=== PATIENT | male | born 1980 | race Caucasian/White ===

== ENCOUNTER 2023-06-23 20:58 | Emergency (ER) | payer OTHER, SELFPAY ==
--- NOTE | ~2023-06-23 | XR_ITS ---
Portable chest x-ray Comparison: None Clinical History: Fever Findings: Lungs are clear, without focal consolidation or pleural effusion. Cardiomediastinal silho uette is unremarkable. Bones and soft tissues are unremarkable. Impression: Clear lungs. Reviewed, dictated and finalized at location [facility] Impression: Clear lungs.
[2023-06-23 21:01] VITALS: BP 139/73; PULSE 106; RESP 20; TEMP 36.6; O2SAT 97
[2023-06-24] VITALS (15 sets, daily range): BP systolic 103–153; BP diastolic 59–90; PULSE 80–112; RESP 15–20; TEMP 37.2–38.3; O2SAT 93–100
--- NOTE | 2023-06-24 01:02 | PC.NURSE ---
Patient states he want to be tested for Malaria. Patient states that he was recently in [place] and had water in his ear. Patient does have a temporal temperature of 100.8. Notified EDP Dr. Ochoa who VRBO 1,000mg Tylenol PO.
[2023-06-24] MEDS: ACETAMINOPHEN 500 MG TABLET 1000 MG PO ×3 (01:08→19:31)
--- NOTE | 2023-06-24 01:17 | ECG_ITS ---
Measurements Intervals [place] Rate: 105 P: 49 MT: 161 QRS: -4 QRSD: 109 T: 23 QT: 332 QTc: 440 Interpretive Statements SINUS TACHYCARDIA DELAYED PRECORDIAL R/S TRANSITION ST ELEVATION IN DIFFUSE LEADS- PROBABLY EARLY REPOLARIZATION BORDERLINE ECG NO PREVIOUS ECG AVAILABLE FOR COMPARISON Electronically Signed On 06-24-2023 6:10:05 CARDIOPULMONARY PHYSICAL THERAPIST by Benjamin Blandon D.O.
[2023-06-24] MEDS: SODIUM CHLORIDE 0.9% IV 2,000 ML 999 ML IV CONT (01:44)
[2023-06-24] MEDS: KETOROLAC 15 MG/ML VIAL (*BKC) IV PUSH ×2 (01:44→22:06)
[2023-06-24 02:07] LABS: Alanine Aminotransferase 273 U/L (6-50); Albumin Level 3.9 g/dL (3.5-5.1); Alkaline Phosphatase 141 U/L (38-126); Anion Gap 9 mmol/L (8-16); Aspartate Amino Transferase 133 U/L (17-59); Blood Urea Nitrogen 15 mg/dL (9-20); Carbon Dioxide 23 mmol/L (22-30); Chloride 100 mmol/L (98-107); Estimated CRCL calculation 107 ml/min; Estimated Glomerular Filt Rate > 60; Glucose 130 mg/dL (65-110); Lactate Dehydrogenase 434 U/L (120-246); Lactic Acid Reflex 1.3 mmol/L (0.7-2.0); Potassium 3.9 mmol/L (3.4-5.0); Sodium 132 mmol/L (137-145)
[2023-06-24 02:13] LABS: Magnesium 1.8 mg/dL (1.6-2.3)
[2023-06-24 02:17] LABS: INR 1.1
[2023-06-24 02:18] LABS: Partial Thromboplastin Time 37.9 SECONDS (22.3-36.8)
[2023-06-24 02:40] LABS: Hematocrit 36.1 % (42.0-52.0); Hemoglobin 12.1 g/dL (14.0-18.0); Immature Platelet Fraction Pct 6.8 % (0.9-11.2); Mean Corpuscular HGB Conc 33.5 g/dl (32-36); Mean Corpuscular Hemoglobin 31.3 pg (26-34); Mean Corpuscular Volume 93.5 fl (80-100); Mean Platelet Volume 10.9 fl (7.4-10.4); Platelet Count Result 53 k/mm3 (150-375); Red Blood Count 3.86 M/mm3 (4.6-6.20); Red Cell Distribution Width 12.2 % (11.5-14.5); White Blood Count 2.5 K/mm3 (4.5-10.0)
[2023-06-24 03:14] LABS: Band Neutrophils Percent 10 % (0-6); Lymphocytes Absolute Manual 0.27 K/mm3 (1.1-4.5); Lymphocytes Percent Manual 11 % (18-44); Monocytes Absolute Manual 0.15 K/mm3 (0.1-0.90); Monocytes Percent Manual 6 % (3-9); Neutrophils Absolute Manual 2.07 K/mm3 (1.3-6.7); Neutrophils Percent Manual 73 % (46-73); Platelet Estimate Decreased (Adequate); Total Cells Counted 100
[2023-06-24 03:15] LABS: Anisocytosis 1+ (NORMAL); Ovalocytes 1+ (NORMAL); Schistocytes None Seen (NORMAL)
[2023-06-24 03:20] LABS: Erythrocyte Sedimentation Rate 21 mm/hr (0-20)
[2023-06-24 03:23] LABS: Add Urine Microscopic? YES; Appearance Urine Clear (Clear); Bacteria Urine None Seen /hpf; Bilirubin Urine 2+ (Negative); Blood Urine 2+ (Negative); Color Urine Dark Yellow (Yellow); Glucose Urine UA Negative (Negative); Ketones Urine 2+ mg/dL (Negative); Leukocyte Esterase Ur Trace LEU/UL (Negative); Nitrate Urine Positive (Negative); Non Pathogenic Casts 0-2; Protein Urine 2+ mg/dL (Negative); RBC Urine 21-50 /hpf (0-2); Specific Grav Ur 1.042 (1.001-1.035); Squamous Epithelial Cell Urine Occasional /hpf (Few); WBC Urine 0-5 /hpf; pH Urine 5.5 (5.0-9.0)
[2023-06-24 06:14] LABS: Mucus Urine Present /lpf
--- NOTE | 2023-06-24 06:28 | PC.NURSE ---
EDP Dr. Ochoa put out a call to the infectious disease nurse who advised to call lab about the pathologist. Nursing staff called the lab about the pathologist and they will reach back out to us after calling the pathologist.
--- NOTE | 2023-06-24 07:23 | PC.NURSE ---
Patient's sister called and would like an update if possible. [phone]
--- NOTE | 2023-06-24 07:37 | ED_ITS ---
PT 15.0 H (11.1-14.7) Seconds INR 1.1 APTT 37.9 H (22.3-36.8) SECONDS Sodium 132 L (137-145) mmol/L Potassium 3.9 (3.4-5.0) mmol/L Chloride 100 (98-107) mmol/L Carbon Dioxide 23 (22-30) mmol/L Anion Gap 9 (8-16) mmol/L BUN 15 (9-20) mg/dL Creatinine 0.90 (0.7-1.3) mg/dL Estim Creat Clear Calc 107 ml/min Estimated GFR > 60 (59 - ) Glucose 130 H (65-110) mg/dL Lactic Acid 1.3 (0.7-2.0) mmol/L Calcium 9.0 (8.4-10.2) mg/dL Magnesium 1.8 (1.6-2.3) mg/dL Total Bilirubin 2.0 H (0.2-1.3) mg/dL AST 133 H (17-59) U/L ALT 273 H (6-50) U/L Alkaline Phosphatase 141 H (38-126) U/L Lactate Dehydrogenase 434 H (120-246) U/L Total Protein 7.0 (6.3-8.2) g/dL Albumin 3.9 (3.5-5.1) g/dL Urine Color Dark yellow (Yellow) Urine Appearance Clear (Clear) Urine pH 5.5 (5.0-9.0) Ur Specific Laie 1.042 H (1.001-1.035) Urine Protein 2+ H (Negative) mg/dL Urine Glucose (UA) Negative (Negative) mg/dL Urine Ketones 2+ H (Negative) mg/dL Ur Blood (Man) 2+ H (Negative) Urine Nitrate Positive H (Negative) Urine Bilirubin 2+ H (Negative) Urine Urobilinogen 2.0 H (<2.0) mg/dL Leukocyte Esterase Rfl Trace H (Negative) NOLAN/UL Urine RBC 21-50 H (0-2) /hpf Urine WBC 0-5 /hpf Ur Squamous Epith Cells Occasional (Few) /hpf Urine Bacteria None seen /hpf Urine Casts 0-2 Urine Mucus Present /lpf Influenza A (RT-PCR) Negative (Negative) Influenza B (RT-PCR) Negative (Negative) Malaria Smear Positive A* (Negative) RSV (RT-PCR) Negative (Negative) SARS-CoV-2 RNA (RT-PCR) Negative (Negative) <Moustapha Ochoa MD - Last Filed: 06/24/23 22:11> Lab Results 06/24/23 06/24/23 06/24/23 Range/Units 01:48 02:31 08:10 WBC 2.5 L (4.5-10.0) K/mm3 RBC 3.86 L (4.6-6.20) M/mm3 Hgb 12.1 L (14.0-18.0) g/dL Hct 36.1 L (42.0-52.0) % MCV 93.5 (80-100) fl MCH 31.3 (26-34) pg MCHC 33.5 (32-36) g/dl RDW 12.2 (11.5-14.5) % Plt Count 53 L (150-375) k/mm3 MPV 10.9 H (7.4-10.4) fl Immature Gran % (Auto) Not Reportable Neut % (Auto) Not Reportable Lymph % (Auto) Not Reportable Boyd % (Auto) Not Reportable Eos % (Auto) Not Reportable Baso % (Auto) Not Reportable Lymph # (Auto) Not Reportable Boyd # (Auto) Not Reportable Eos # (Auto) Not Reportable Baso # (Auto) Not Reportable Abs Immat Gran (auto) Not Reportable Absolute Neuts (auto) Not Reportable Absolute Nucleated RBC Not Reportable Total Counted 100 Neutrophils % (Manual) 73 (46-73) % Band Neutrophils % 10 H (0-6) % Lymphocytes % (Manual) 11 L (18-44) % Monocytes % (Manual) 6 (3-9) % Nucleated RBC % Not Reportable Abs Neuts (Manual) 2.07 (1.3-6.7) K/mm3 Abs Lymphs (Manual) 0.27 L (1.1-4.5) K/mm3 Abs Monocytes (Manual) 0.15 (0.1-0.90) K/mm
--- NOTE | 2023-06-24 07:37 | ED.GENADULT ---
HPI - General Adult General Chief complaint: Fever <Moustapha Ochoa MD - Last Filed: 06/24/23 22:11> Stated complaint: ear problem, fever <Moustapha Ochoa MD - Last Filed: 06/24/23 22:11> Time Seen by Provider: 06/24/23 00:44 <Moustapha Ochoa MD - Last Filed: 06/24/23 22:11> History of Present Illness HPI narrative: this is a 42-year-old male presenting with fevers. Starting on June 19 patient started to have fevers chills body aches headaches nausea vomiting and diarrhea. Patient returned from [facility] on June 14. He did not take malarial prophylaxis for the area. He denies chest pain difficulty breathing rashes or other complaints. <Moustapha Ochoa MD - Last Filed: 06/24/23 22:11> Related Data Allergies/adverse reactions: Allergies Allergy/AdvReac Type Severity Reaction Status Date / Time No Known Allergies Allergy Verified 06/24/23 00:54 <Moustapha Ochoa MD - Last Filed: 06/24/23 22:11> Exam Narrative: APPEARANCE: Patient appears uncomfortable Head: atraumatic. EYES: EOMI, NOSE: Atraumatic NECK: Trachea midline RESPIRATORY: No increased rate of breathing CTAB CARDIOVASCULAR: RRR, ABDOMINAL: Non-distended soft nontender MUSCULOSKELETAl: No obvious deformities NEURO: Alert. Moving 4/4 extremities SKIN:: Warm, dry. Normal color PSYCHIATRIC: Normal affect <Moustapha Ochoa MD - Last Filed: 06/24/23 22:11> Course Course Emergency Course: ZYCH 2199: Patient received his 1st dose of antibiotics our department. He will be transferred to [facility] for further management. <Moustapha Ochoa MD - Last Filed: 06/24/23 22:11> Reevaluation(s) Reevaluation #1: I discussed the case with the hospital at at [facility] and patient was accepted by transfer, patient was accepted by Dr. Seth. I did call and leave a message with the [facility] malaria hotline at area code [phone] Martinez from the [facility] and she did recommend starting the treatment for malaria. Pharmacy was consulted and patient will be started on Coartem. This medication was ordered and it is anticipated it will be delivered between 8 and 10:00 p.m.. Transfer to [facility] is still pending. <Jose Raul Deal MD - Last Filed: 06/27/23 07:22> Vital Signs Vital signs: Vital Signs Temperature 97.8 F 06/23/23 21:01 Pulse Rate 106 H 06/23/23 21:01 Respiratory Rate 20 06/23/23 21:01 Blood Pressure 139/73 06/23/23 21:01 Pulse Oximetry 97 06/23/23 21:01 Oxygen Delivery Room Air 06/23/23 21:01 Temperature 98.9 F 06/24/23 19:16 Pulse Rate 84 06/24/23 22:11 Respiratory Rate 17 06/24/23 22:11 Blood Pressure 120/81 06/24/23 22:11 Pulse Oximetry 100 06/24/23 22:11 Oxygen Delivery Room Air 06/23/23 21:01 <Moustapha Ochoa MD - Last Filed: 06/24/23 22:11> Vital Signs Temperature 97.8 F 06/23/23 21:01 Pulse Rate 106 H 06/23/23 21:01 Respiratory Rate 20 06/23/23 21:01 Blood Pressure 139/73 06/23/23 21:01 Pulse Oximetry 97 06/23/23 21:01 Oxygen Delivery Room Air 06/23/23 21:01 Temperature 98.9 F 06/24/23 19:16 Pulse Rate 84 06/24/23 22:11 Respiratory Rate 17 06/24/23 22:11 Blood Pressure 120/81 06/24/23 22:11 Pulse Oximetry 100 06/24/23 22:11 Oxygen Delivery Room Air 06/23/23 21:01 <Jose Raul Deal MD - Last Filed: 06/27/23 07:22> Medical Decision Making MDM Narrative Medical decision making narrative: -Course: 42-year-old male presenting with fever. Given his recent trip to [place] workup for malaria was ordered. Significant for anemia, elevated LDH and elevations in liver enzymes as well as blood in his urine. Infectious disease coordinator was notified. We are waiting until pathology and our Infectious Disease pharmacist to obtain a smear and initial antibiotics. Patient has been signed out to Dr. Deal pending completion of his workup. -DDX includes but is not limited
[2023-06-24 08:50] LABS: Influenza A QL RT-PCR Negative (Negative); Influenza B QL RT-PCR Negative (Negative); RSV RNA, RT-PCR Negative (Negative); SARS-CoV-2 RNA PCR Negative (Negative)
--- NOTE | 2023-06-24 11:35 | PC.NURSE ---
pt accepted at [facility] waiting for bed - placed on wait list
[2023-06-24] MEDS: SODIUM CHLORIDE 0.9% IV 1,000 ML 999 ML IV CONT (14:00)
--- NOTE | 2023-06-24 18:35 | PC.NURSE ---
[id number] pt remains on waitlist for [facility] no time frame for bed
--- NOTE | 2023-06-24 19:13 | PC.NURSE ---
Assumed care of pt from SOFIA Jenkins at this time.
--- NOTE | 2023-06-24 19:37 | PC.NURSE ---
Pt family requesting to speak to EDP about receiving medical tx closer to home in [place]. EDP made aware by this RN. This RN provided pt w water and Tylenol at this time.
[2023-06-24] MEDS: ONDANSETRON INJ 4 MG/2 ML VIAL IV PUSH (19:56)
[2023-06-30 12:21] LABS: Haptoglobin 67 mg/dL (43-212)
== END 2023-06-24 22:13 | disposition short-term general hospital (02) ==
PROVIDERS: Emergency Medicine; Emergency Provider Emergency Medicine
DX: B54 Unspecified malaria (principal); Z20.822 Contact with and (suspected) exposure to COVID-19
CPT/HCPCS: 36415; 71045; 80053; 81001; 83010; 83605; 83615; 83735; 85025; 85055; 85610; 85652; 85730; 87207; 87637; 93005; 96361; 96374; 96375; 96376; 99285; A9270; J1885; J2405; J7030